=== PATIENT | female | born 1960 | race Two or more races ===

== ENCOUNTER 2020-08-14 05:45 | Day surgery (SDC) | payer OTHER | END 2020-08-14 14:10 | disposition home or self-care (01) | LOC: CIR.AMB 05:45 | PROVIDERS: ATTEND Obstetrics & Gynecology | DX: N84.0 Polyp of corpus uteri (principal); Z20.822 Contact with and (suspected) exposure to COVID-19 ==

== ENCOUNTER 2024-12-11 10:15 | Inpatient (IN) | payer OTHER ==
[~2024-12-11] VITALS: Ht 157.5 cm; Wt 73.5 kg
[2024-12-11 10:51] VITALS: BP 112/70
[2024-12-11] MEDS ORDERED: SYNTHROID50 MCG PO (10:51)
[2024-12-11 10:54] VITALS: BP 136/85
[2024-12-17] MEDS ORDERED: CEFAZOLIN SODIUM 1,000 MG VIAL ONE (09:56)
[2024-12-17] MEDS ORDERED: POVIDONE-IODINE 118 ML BOTT TOP ONE (12:07)
[2024-12-17] MEDS ORDERED: SUGAMMADEX SODIUM 200 MG/2 ML VIAL IV ONE (13:51)
[2024-12-17] MEDS ORDERED: SURGIFLO APPLICATOR 1 EACH APPL TOP ONE (13:59)
[2024-12-17] MEDS ORDERED: HEMOSTATIC MATRIX 1 KIT KIT TOP ONE (14:02)
[2024-12-17] MEDS ORDERED: MORPHINE SULFATE 4 MG,MORPHINE SULFATE 2 MG IV PRN (14:30)
[2024-12-17] MEDS ORDERED: ONDANSETRON HCL 2 MG/ML VIAL IV PRN (14:45)
[2024-12-17] MEDS ORDERED: RINGERS SOLUTION,LACTATED 1,000 ML IV SCH (15:00)
[2024-12-17] MEDS ORDERED: MORPHINE SULFATE 4 MG/ML CARTRIDGE IV SCH (16:00)
[2024-12-17] MEDS ORDERED: CEFAZOLIN SODIUM 1,000 MG VIAL IV SCH (18:00)
[2024-12-17 18:56] VITALS: BP 112/70
[2024-12-17 20:00] VITALS: BP 107/69
[2024-12-17 21:50] LABS: BASO % 0.5 % (0.1-1.2); EOS # 0.02 (0.04-0.54); EOS % 0.2 % (0.7-7.0); LYMPH # 0.83 (1.18-3.74); LYMPH % 7.6 % (19.3-53.1); MEAN PLATELET VOLUME 10.20 fl (9.4-12.4); MONO # 0.47 (0.24-0.82); MONO % 4.3 % (4.7-12.5); NEUT # 9.46 (1.56-6.13); NEUT % 87.2 % (34.0-71.1); RED CELL DISTRIBUTION WIDTH 13.8 % (11.6-14.4)
[2024-12-18 00:01] VITALS: BP 90/57
[2024-12-18] MEDS ORDERED: LEVOTHYROXINE SODIUM 50 MCG TABLET PO SCH (06:00)
[2024-12-18] MEDS ORDERED: ONDANSETRON4 MG/2 M1 IV (06:52)
[2024-12-18] MEDS ORDERED: LEVOTHYROXINE50 MCG PO (06:52)
[2024-12-18] MEDS ORDERED: FAMOTIDINE20 MG PO (06:52)
[2024-12-18] MEDS ORDERED: IBU800 MG PO (06:53)
[2024-12-18 08:00] VITALS: BP 103/66
[2024-12-18] MEDS ORDERED: ENOXAPARIN SODIUM 40 MG/0.4 ML SYRINGE SUBCUTANEO SCH (09:00)
== END 2024-12-18 09:11 | disposition home or self-care (01) | DRG 743 ==
LOC: SURH 12-17 07:00 → O/R 12-17 09:00 → SURH 12-17 10:15 → OB/GYN 12-17 16:56
PROVIDERS: ADMIT Obstetrics & Gynecology Gynecology; ATTEND Obstetrics & Gynecology Gynecology
PROC: 0UT74ZZ Resection of Bilateral Fallopian Tubes, Percutaneous Endoscopic Approach (ICD-10-PCS; 2024-12-17)
PROC: 0UT94ZZ Resection of Uterus, Percutaneous Endoscopic Approach (ICD-10-PCS; principal; 2024-12-17 07:00)
DX: N84.0 Polyp of corpus uteri (principal); N81.2 Incomplete uterovaginal prolapse